=== PATIENT | female | born 1955 | race Caucasian/White ===

== ENCOUNTER → 2016-11-11 14:49 | Day surgery (SDC) | payer OTHER ==
[~2016-11-11 14:49] MED LIST: Buffered Lidocaine 1% SYR 3ML* 3 ML/SYR SYRINGE INTRADERM ONE; Buffered Lidocaine 1% SYR 3ML* 3 ML/SYR SYRINGE ONE; Bupivacaine 0.25% SDV* 30 ML ONE; Dexamethasone IV* 4 MG/ML 1 ML (4 MG) ONE; Famotidine IV* 10 MG/ML 2 ML (20 mg) IV ONE; Famotidine IV* 10 MG/ML 2 ML (20 mg) ONE; KETAMINE HCL* 50 MG/ML 10 ML VIAL ONE; Ketorolac INJ* 30 MG/ML 1 ML VIAL ONE; Lidocaine 2% PF * 5 ML VIAL ONE; Midazolam* 1 MG/ML 5 ML VIAL (5 MG) ONE; Ondansetron INJ* 2 MG/ML VIAL IV PRN; Ondansetron INJ* 2 MG/ML VIAL ONE; Propofol* 10 MG/ML 20 ML BTL IV PUSH ONE; ceFAZolin 2 GM PREMIX (*) 2 GM/50 ML BAG IVPB ONE; fentaNYL* 50 MCG/ML 2 ML VIAL (100 MCG VIAL) ONE; oxyCODONE/Acetamin 5/325 MG* TAB PO PRN
[2016-11-11 19:04] VITALS: BP 122/77
--- NOTE | 2016-11-12 17:11 | OP ---
DATE OF OPERATION: 11/11/16 - [facility] DATE OF : 51 SURGEON: Philippe Suarez MD MOTOR TESTER: JAMAL Perdomo ANESTHESIOLOGIST: Dr. Peterson. ANESTHESIA: General. PRE-OP DIAGNOSIS: Large deep right hand mass consistent on MRI with a lipoma. POST-OP DIAGNOSIS: Large deep hand mass consistent with a lipoma. OPERATIVE PROCEDURE: Excision of right hand first web space large deep mass measuring 4 x 3 x 2 cm. INDICATIONS: Hali Buchanan is a 61-year-old female who has had progressive enlargement in the right first web space area. The hand has functioned well and she has just dealt with it. A while back, she had an MRI that showed a lipoma. There was no enhancement to suggest an atypical lipomatous tumor. Recently, the index finger has started to go numb and so she presented to my office and desired to have the mass removed. ESTIMATED BLOOD LOSS: 2 mL. COMPLICATIONS: None. FINDINGS: Large deep mass consistent with lipoma as expected. DESCRIPTION OF PROCEDURE: Hali Buchanan was seen in the preoperative holding area and the correct side and site were marked. We came back into the room and anesthesia was induced. The arm was prepped and draped in the usual fashion and a formal time- out was performed. A Deena-type incision was made in the palm over the area of the mass. Full- thickness flaps were raised and the two flaps were retracted. The mass was identified. I identified an interval where no significant nerves or vascular structures were present and I entered the reactive zone of the tumor. I then went ahead and performed a marginal excision of the mass. I first did go distal to the mass and identified the ulnar and radial digital nerves to the thumb. These were protected throughout the case. As I continued the excision distally around the distal edge of the mass, I followed the ulnar digital nerve at the thumb. This was very adherent to the mass and ultimately I got back to the radial digital nerve to the index finger as well. These were both extremely thinned out and stretched and adherent to the mass. I went ahead and released both of those and these were protected while I continued on until I was able to finally complete the marginal excision and fully excise the mass. I went ahead and took some measurements and the mass measured 4 x 3 x 2 cm. I again examined the major neurovascular structures and everything was intact. I went ahead and excised the reactive zone of tissue from the mass excision and then went ahead and irrigated the wound and closed the skin with 4-0 nylon sutures. I injected some Marcaine and dressed the wounds with Xeroform, 4x4's, sterile Webril, and then an Jaime wrap. She was then woken back up and taken to the recovery room in stable condition. [id number]/[facility] #: [id number] ALBERT
== END | disposition home or self-care (01) ==
LOC: OREAST 14:49
PROVIDERS: ATTEND Orthopaedic Surgery Hand Surgery
DX: D17.21 Benign lipomatous neoplasm of skin and subcutaneous tissue of right arm (principal)
CPT/HCPCS: 88304; J0690; J1100; J1885; J2250; J2405; J2704; J3010

== ENCOUNTER 2017-04-04 18:56 | Emergency (ER) | payer OTHER ==
[2017-04-04 19:17] VITALS: BP 130/80
[2017-04-04] MEDS ORDERED: HYDROcodone/ACETAMIN 5-325 MG* 1 TAB PO ONE (21:16)
--- NOTE | 2017-04-05 00:54 | ED ---
Laceration/Wound HPI - HPI Summary HPI Summary: Patient presents to the ED with a 1cm superficial laceration to the palm of the left hand without contamination from a kitchen knife while cutting an avacado. She denies numbness, tingling, color or temperature changes. She is otherwise healthy and denies allergies. Tetanus UTD as of Nov 2016. Bleeding is minimal and contained. Denies blood thinners - History of Current Complaint Chief Complaint: left hand laceration Stated Complaint: LT HAND LAC Time Seen by Provider: 04/04/17 20:30 Hx Obtained From: Patient Mechanism of Injury: Sharp/Blunt Trauma Onset/Duration: Sudden Onset Aggravating: Nothing Alleviating: Nothing Pain Intensity: 5 Pain Scale Used: 0-10 Numeric Associated Signs & Symptoms: Negative Related Hx: Dominant Hand (Right) - Allergy/Home Medications Allergies/Adverse Reactions: Allergies Allergy/AdvReac Type Severity Reaction Status Date / Time No Known Allergies Allergy Verified 11/11/16 15:08 PMH/Surg Hx/FS Hx/Imm Hx Previously Healthy: Yes Endocrine/Hematology History: Denies: Hx Diabetes, Hx Thyroid Disease Cardiovascular History: Denies: Hx Hypertension, Hx Pacemaker/ICD Respiratory History: Denies: Hx Asthma, Hx Chronic Obstructive Pulmonary Disease (COPD) GI History: Denies: Hx Ulcer History: Denies: Hx Dialysis, Hx Kidney Infection, Hx Renal Disease Musculoskeletal History: Reports: Hx Arthritis - HANDS, RIGHT KNEE, Other Musculoskeletal History - MASS IN PALM OF RIGHT HAND FOR PAST YEAR Denies: Hx Osteoporosis Sensory History: Reports: Hx Contacts or Glasses - GLASSES Denies: Hx Hearing Aid Opthamlomology History: Reports: Hx Contacts or Glasses - GLASSES Psychiatric History: Denies: Hx Panic Disorder - Cancer History Hx Chemotherapy: No Hx Radiation Therapy: No - Surgical History Surgery Procedure, Year, and Place: C-SECTIONLumpectomy in her early 20's Hx Anesthesia Reactions: No - Immunization History Hx Pertussis Vaccination: No Immunizations Up to Date: Unable to Obtain/Confirm Infectious Disease History: Reports: Hx Hepatitis - CHILDHOOD Denies: Hx Clostridium Difficile, Hx Human Immunodeficiency Virus (HIV), Hx of Known/Suspected MRSA, Hx Shingles, Hx Tuberculosis, Hx Known/Suspected VRE, Hx Known/Suspected VRSA, History Other Infectious Disease, Traveled Outside the [place] in Last 30 Days - Family History Known Family History: Positive: Unknown, Cardiac Disease - father side of the family, Hypertension - mother, brother, Other - CVA - mother - Social History Occupation: Unemployed Lives: With Family Alcohol Use: Rare Alcohol Amount: 1-2 DRINKS/MONTH Hx Substance Use: No Substance Use Type: Reports: None Hx Tobacco Use: No Smoking Status (MU): Never Smoked Tobacco Have You Smoked in the Last Year: No Review of Systems Constitutional: Negative Eyes: Negative ENT: Negative Cardiovascular: Negative Respiratory: Negative Musculoskeletal: Negative Positive: Other - 1.0 cm laceration to the left palm Neurological: Negative Psychological: Normal All Other Systems Reviewed And Are Negative: Yes Physical Exam Triage Information Reviewed: Yes Vital Signs On Initial Exam: Initial Vitals Temp Pulse Resp BP Pulse Ox 97.5 F 81 16 130/80 99 04/04/17 19:14 04/04/17 19:14 04/04/17 19:14 04/04/17 19:14 04/04/17 19:14 Vital Signs Reviewed: Yes Appearance: Positive: Well-Appearing, Well-Nourished Skin: Positive: Warm, Skin Color Reflects Adequate Perfusion, Other - 1.0 cm superficial laceration to the left palm with minimal bleeding Head/Face: Positive: Normal Head/Face Inspection Eyes: Positive: EOMI, MI, Conjunctiva Clear Neck: Positive: Supple, No Lymphadenopathy Respiratory/Lung Sounds: Positive: Clear to Auscultation, Breath Sounds Present Cardiovascular: Positive: Normal, RRR Musculoskeletal: Positive: Normal Neurological: Positive: Sensory/Motor Intact, Alert, Oriented to Person Place, Time Psychiatric: Positive: Normal AVPU Assessment: Alert - Donny Coma Scale Best Eye Response: 4 - Spontaneous Best Motor Response: 6 - Obeys Commands Diagnostics - Vital Signs Vital Signs Temp Pulse Resp BP Pulse Ox 04/04/17 19:14 97.5 F 81 16 130/80 99 - Laboratory Lab Statement: Any lab studies that have been ordered have been reviewed, and results considered in the medical decision making process. Laceration Repair Course/Dx - Course Course Of Treatment: Patient arrives with small 1.0cm laceration to the left palm after cutting an avacado. She denies blood thinners. Tetanus UTD. 1mg Local anesthetic lido without epi 1% used. Laceration repaired with 4-0 prolene non-absorbable. Telfa dressing and bandage applied. No abx. No debridement. Patient tolerated well. Will follow up with PCP or return to ED for suture removal in 7 days. - Differential Dx Differental Diagnoses: Abrasion, Abscess, Avulsion, Laceration, Puncture Wound - Clinical Impression Provider Diagnoses: Laceration of palm Discharge - Discharge Plan Condition: Stable Disposition: HOME Patient Education Materials: Care For Your Stitches (ED), Laceration (ED) Referrals: Chen Crystal MD [Primary Care Provider] - Additional Instructions: Suture removal in 7 days. Follow up with PCP as needed. Images - Images Hands: 1 - 1cm laceration with minimal bleeding, superifical
== END 2017-04-04 21:34 | disposition home or self-care (01) ==
LOC: ED 18:56
DX: S61.412A Laceration without foreign body of left hand, initial encounter (principal); W26.0XXA Contact with knife, initial encounter; Y93.9 Activity, unspecified; Y92.9 Unspecified place or not applicable; Y99.9 Unspecified external cause status
CPT/HCPCS: 99282